=== PATIENT | male | born 1995 | race Caucasian/White ===

== ENCOUNTER 2019-06-03 02:51 | Emergency (ER) | payer SELFPAY ==
[2019-06-03 02:52] VITALS: BP 133/95; PULSE 78; RESP 15; TEMP 36.6; O2SAT 100; BMI 22.0
--- NOTE | 2019-06-03 02:53 | ED.RN ---
CALLED FOR EKG PER RN REQUEST, PULLED OLD EKG FOR
--- NOTE | 2019-06-03 03:18 | ED.DCSUM_ITS ---
History of Present Illness Chief Complaint: Dizziness Informant: Patient Onset: Hours - 1-2 Context: Sudden Onset - relatively, while driving; does not remember doing anything in particular or turning head suddenly to trigger sx that he can remember Timing: Continuous Quality: spinning/movement Location: head Current Severity: Mild Maximum Severity: Severe Worsened by: turning head Relieved by: remaining still Associated Symptoms: mild right earache. mild nausea. no vtg. no headache or tinnitus. Narrative: No recent injury. Never had this before. No recent URI in the last several weeks, and no symptoms of one now. No changes in his hearing, vision, or weakness/numbness in his extremities. No neck pain. No loss of consciousness. States he is having some chest discomfort, it was noted by nursing/triage, however he states this is reflux and he gets this all the time and has a known history of it, it is no different now. No dyspnea. No palpitations. No near syncope or syncope. - Past Medical History (1) GERD (gastroesophageal reflux disease) Status: Chronic Past Medical History - Allergies and Home Meds Allergies/Adverse Reactions: Allergies No Known Allergies Allergy (Verified 06/03/19 02:52) Primary Care Physician: Mason Anderson DO [Primary Care Provider] - Lives: Spouse/ Significant Other Smoking Status: Current every day smoker Review of Systems General: Denies: Chills, Fever, Sweats Eyes: Denies: Visual changes - bilaterally, Diplopia ENT: Reports: Right ear pain. Denies: Left ear pain, Rhinorrhea, Sore throat Cardiovascular: Denies: Chest pain, Palpitations Respiratory: Denies: Dyspnea, Cough, Dyspnea on exertion Gastrointestinal: Reports: Nausea. Denies: Abdominal pain, Vomiting, Diarrhea, Melena, Hematochezia Genitourinary: Denies: Dysuria, Hematuria, Frequency Musculoskeletal: Denies: Neck pain, Back pain, Extremity Pain Skin: Denies: Rash, Wounds Neurological: Reports: - - vertigo. Denies: Headache, Weakness, Numbness Physical Exam Vital Signs/Narrative: Vital Signs Temp Pulse Resp BP Pulse Ox 06/03/19 02:52 97.9 F 78 15 133/95 H 100 Inital Vital Signs reviewed: Yes General: Well nourished, Well developed, No Acute Distress Head: Normocephalic, Atraumatic Eyes: Perrl, EOMI, - - Horizontal nystagmus. No vertical or rotatory nystagmus. ENT: Moist mucous membranes, No rhinorrhea, TM's clear Neck: Supple, Nontender, No lymphadenopathy, No JVD Cardiovascular: Regular rate, Regular rhythm, No murmurs. Negative for: Tachycardia Respiratory: No distress, CTA bilaterally, Chest nontender Extremities: Nontender, No edema. Negative for: Calf Tenderness Skin: Normal color, No rash, No Trauma Neurological: Alert, Oriented x3, Cranial nerves II-XII grossly intact, Normal Strength, Normal Sensation, - - [id number]-up-[id number] and [id number] bilaterally. Positive [place] to the right. Psychological: Normal affect, Normal Mood Diagnostic/Tx/Re-eval - Medical Decision Making Consistent with peripheral vertigo, possibly BPPV. Given appropriate discharge instructions, prescription for Antivert, a dose here along with some Zofran. He is comfortable with this plan and following up with ENT if symptoms persist longer than several days or a week. ED Disposition - Plan for ED Patient: Disposition: Home or Assisted Living Diagnosis: Peripheral vertigo involving right ear Instructions: VERTIGO, Unspecified, Benign Positional Vertigo Prescriptions: Meclizine HCl [Antivert] 25 mg PO TID PRN PRN #20 tab PRN Reason: Dizziness Prescription Printed Referrals: Mason Anderson DO [Primary Care Provider] - Iggy Ellison MD [STAFF PHYSICIAN] - 1 Week if not improving
[2019-06-03] MEDS: Meclizine HCl 25 MG Tablet PO (03:26)
[2019-06-03] MEDS: Ondansetron ODT 4 MG Tablet 8 MG PO (03:26)
[2019-06-03 03:39] VITALS: BP 134/87; PULSE 67; RESP 12; O2SAT 100
== END 2019-06-03 04:12 | disposition home or self-care (01) ==
PROVIDERS: Emergency Provider Emergency Medicine; Family Provider Preventive Medicine Occupational Medicine; PCP Preventive Medicine Occupational Medicine
DX: H81.391 Other peripheral vertigo, right ear (principal); F17.200 Nicotine dependence, unspecified, uncomplicated
CPT/HCPCS: 99284; A4216